=== PATIENT | female | born 1990 | race Two or more races ===

== ENCOUNTER → 2019-11-05 | Outpatient (CLI) | payer OTHER | END | disposition home or self-care (01) | LOC: LAB 10:34 | PROVIDERS: ATTEND Nurse Practitioner Family | DX: U07.1 COVID-19 (principal) ==

== ENCOUNTER → 2020-06-30 | Outpatient (CLI) | payer BC ==
[2020-06-30 14:06] LABS: BUN/Creatinine Ratio 21.9; Calcium 8.4 mg/dL (8.5-10.1); Potassium 4.4 mmol/L (3.5-5.1)
== END | disposition home or self-care (01) ==
LOC: LAB 12:35
DX: D35.2 Benign neoplasm of pituitary gland (principal)
CPT/HCPCS: 36415; 80048

== ENCOUNTER → 2020-07-02 | Outpatient (CLI) | payer BC ==
[~2020-07-02] MED LIST: GADOTERATE MEG 10 MMOL/20ml INJ (0.5MMOL/ml) IV ONE
== END | disposition home or self-care (01) ==
LOC: XYW 14:37
DX: D35.2 Benign neoplasm of pituitary gland (principal); E06.3 Autoimmune thyroiditis
CPT/HCPCS: 70553; A9575